=== PATIENT | female | born 1955 | race Caucasian/White ===

== ENCOUNTER 2018-06-23 07:01 | Emergency (ER) | payer MEDICARE, OTHER ==
[~2018-06-23] VITALS: Ht 167.6 cm; Wt 54.4 kg
[2018-06-23] MEDS ORDERED: MAGNESIUM CITRATE 296 ML SOLUTION. PO ONE (08:30)
[2018-06-23 09:08] VITALS: BP 151/65
[2018-06-23] MEDS ORDERED: LACT20SO PO (09:14)
--- NOTE | 2018-06-23 09:54 | PHYS DOC ---
Past Medical History Past Medical History: Anxiety, Depression, High Cholesterol, Hip Fracture, Hypertension, Other Additional Past Medical Histor: HEMIPLEGIA(L) SIDE, (L)HIP FX, REDUCED MOBILITY Past Surgical History: Other Additional Past Surgical Histo: HIP SX Alcohol Use: None Drug Use: None Adult General Chief Complaint Chief Complaint: CONSTIPATION HPI HPI Patient is a 62 year old female brought in by ambulance with constipation per the halfway she has not had a bowel movement for 2 days she said it's been more like 5 days she's having some lower abdominal discomfort and rectal pain no fever no vomiting she has some trouble urinating at times as well. History obtained from the nurse at the halfway is that he tried a disimpaction and even tried an enema but really did not get much stool out there was a small amount of bleeding so he sent patient to the emergency room for evaluation patient is about 10 days status post a hip surgery Review of Systems Review of Systems Constitutional: Denies fever or chills [] Eyes: Denies change in visual acuity, redness, or eye pain [] HENT: Denies nasal congestion or sore throat [] Respiratory: Denies cough or shortness of breath [] All other systems were reviewed and found to be within normal limits, except as documented in this note. Current Medications Current Medications Current Medications Medications (Trade) Dose Ordered Sig/Nick Start Time Stop Time Status Last Admin Dose Admin Magnesium Citrate (Citroma) 296 ml 1X ONCE 06/23/18 08:30 06/23/18 08:31 DC 06/23/18 09:40 296 ML Allergies Allergies Allergies Coded Allergies Type Severity Reaction Last Updated Verified clarithromycin Allergy Intermediate 06/23/18 Yes meperidine Allergy Intermediate 06/23/18 Yes tramadol Allergy Intermediate 06/23/18 Yes Physical Exam Physical Exam Constitutional: Well developed, well nourished, no acute distress, non-toxic appearance. [] HENT: Normocephalic, atraumatic, bilateral external ears normal, oropharynx moist, no oral exudates, nose normal. [] Eyes: PERRLA, EOMI, conjunctiva normal, no discharge. [] Abdomen: Bowel sounds normal, soft, mild fullness in the lower abdomen but really no significant tenderness, no masses, no pulsatile masses. No peritoneal signs Disimpaction performed by nursing staff revealed soft brown stool in the vault scant blood was noted after enema Skin: Warm, dry, no erythema, no rash. Back: No tenderness, no CVA tenderness. Extremities: Recent hip surgery noted. Neurologic: Alert and oriented X 3, normal motor function, normal sensory function, no focal deficits noted. [] Current Patient Data Vital Signs Vital Signs Date Time Temp Pulse Resp B/P (MAP) Pulse Ox O2 Delivery O2 Flow Rate FiO2 06/23/18 09:08 94 14 151/65 (93) 96 Room Air 06/23/18 07:04 97.5 97.5 EKG EKG [] Radiology/Procedures Radiology/Procedures [] Course & Med Decision Making Course & Med Decision Making Pertinent Labs and Imaging studies reviewed. (See chart for details) []pt had manual disimpaction by nursing staff then we did an enema pt had a large bowel movement and stated she felt much better, the rectal discomfort resolved. only scant streaks of blood noted with enema no active bleeding mag citrate given and rx lactulose return prec reviewed. abdominal exam and obvious rectal impaction by hx and exam do not suggest other intraabdominal etiology at this time Dragon Disclaimer Dragon Disclaimer This electronic medical record was generated, in whole or in part, using a voice recognition dictation system. Departure Departure Impression: Primary Impression: Constipation Disposition: HOME, SELF-CARE Condition: STABLE Patient Instructions: Constipation, Adult, [id number] Scripts Lactulose (LACTULOSE) 20 Gm/30 Ml Solution 20 GM PO BID, #300 ML Prov: DINORAH HUTTON MD 06/23/18 DINORAH HUTTON MD Jun 23, 2018 09:54
== END 2018-06-23 09:44 | disposition home or self-care (01) ==
LOC: ER 07:01
DX: K59.00 Constipation, unspecified (principal); K62.89 Other specified diseases of anus and rectum; E78.00 Pure hypercholesterolemia, unspecified; I10 Essential (primary) hypertension; Z88.1 Allergy status to other antibiotic agents; Z88.6 Allergy status to analgesic agent
CPT/HCPCS: 99284